=== PATIENT | male | born 1950 | race Caucasian/White ===

== ENCOUNTER → 2017-05-29 | Outpatient (CLI) | payer OTHER ==
[2017-05-29 14:01] LABS: BASOPHILS # (AUTO) 0.06 10*3/UL; BASOPHILS % (AUTO) 0.7 % (0-1); EOSINOPHILS # (AUTO) 0.25 10*3/UL; EOSINOPHILS % (AUTO) 2.9 % (0-8); HEMATOCRIT 41.7 % (42.0-52.0); HEMOGLOBIN 14.1 g/dL (14.0-18.0); LYMPHOCYTES # (AUTO) 2.73 10*3/uL; MEAN CORPUSCULAR HEMOGLOBIN 28.1 PG (27-31); MEAN CORPUSCULAR HGB CONC 33.8 g/dL (33-37); MEAN CORPUSCULAR VOLUME 83.2 FL (80-90); MEAN PLATELET VOLUME 9.2 FL (7.4-12.2); MONOCYTES # (AUTO) 0.58 10*3/UL (0.3-0.8); MONOCYTES % (AUTO) 6.7 % (5-15); NEUTROPHILS # (AUTO) 4.97 10*3/UL; NEUTROPHILS % (AUTO) 57.8 % (50-80); RED BLOOD COUNT 5.01 10^6/uL (4.70-6.10)
[2017-05-29 14:04] LABS: PLATELET MORPHOLOGY COMMENT NORMAL MORPHOLOGY (NORM); RBC MORPHOLOGY COMMENT NORMAL MORPHOLOGY (NORM); WBC MORPHOLOGY COMMENT NORMAL MORPHOLOGY (NORM)
[2017-05-29 14:25] LABS: BLOOD UREA NITROGEN 19 mg/dL (7-22); BUN/CREATININE RATIO 21.11 (6-20); EST GLOMERULAR FILTRATION > 60 (>60 ml/min/1.73m(2))
[2017-05-29 14:26] LABS: C-REACTIVE PROTEIN 2.8 mg/dL (0.0-0.9); CALCIUM 9.5 mg/dL (8.7-10.7); SERUM ALBUMIN 4.3 g/dL (3.5-4.8)
[2017-05-29 14:35] LABS: CREATINE KINASE MB 1.95 NG/ML (0.00-5.00); TROPONIN I < 0.012 ng/mL (< 0.040)
--- NOTE | 2017-05-29 14:50 | EKG ---
[address] [address] Measurements Intervals [place] Rate: 63 P: 5 AK: 164 QRS: 45 QRSD: 88 T: 19 QT: 394 QTc: 401 Interpretive Statements SINUS RHYTHM No previous ECG available for comparison Electronically Signed On 05-31-17 16:25:49 MDT by Jl Rodriguez [email or web address]
--- NOTE | 2017-05-29 15:20 | DI ---
PA /LATERAL CHEST X-RAY, 05/29/2017 1:39 PM : Clinical History: Shortness of breath. Previous Exam: None at this facility. There is no acute soft tissue or bony abnormality. Heart size is normal. Lungs are clear. Mediastinal structures are normal. There are no pulmonary nodules. Reading: Normal chest x-ray.
[2017-06-02 14:22] LABS: THROMBIN TIME 19
[2017-06-02 14:23] LABS: DRVVT SCREEN RATIO 1.2
[2017-06-02 14:25] LABS: PROTEIN C ACTIVITY 189; SOLUBLE FIBRIN MONOMER <8
[2017-06-02 14:26] LABS: PROTEIN S ANTIGEN 108
== END ==
LOC: MOB LAB 13:41
PROVIDERS: ATTEND Physician Assistant
DX: I82.412 Acute embolism and thrombosis of left femoral vein (principal); I26.99 Other pulmonary embolism without acute cor pulmonale; R06.02 Shortness of breath
CPT/HCPCS: 36415; 71020; 71275; 80053; 81240; 82553; 83880; 84484; 85025; 85300; 85303; 85306; 85307; 85366; 85379; 85384; 85390; 85610; 85613; 85670; 85730; 86140; 93005; 93010; 93971; 99213

== ENCOUNTER → 2017-05-29 | Outpatient (CLI) | payer OTHER ==
--- NOTE | 2017-05-29 15:16 | DI ---
VENOUS DOPPLER ULTRASOUND OF THE LEFT LOWER EXTREMITY, 05/29/2017 2:19 PM: Clinical History: Left leg swelling Previous Exam: None. Technique: 2D real-time imaging is supplemented with color Doppler ultrasound. Minimal compression an d augmentation maneuvers were performed. The deep venous system from the groin to the popliteal fossa including the distal deep femoral vein are filled with clot. The greater saphenous vein near the com mon femoral vein also has clot. Reading: There is deep vein thrombosis from the popliteal fossa to the groin.
--- NOTE | 2017-05-29 16:02 | DI ---
CT ANGIOGRAM OF THE CHEST, 05/29/2017 3:01 PM : Clinical History: Deep vein thrombosis. Previous Exam: None at this facility. Scans are performed from the base of the neck to the lower lung bases following IV administration of 65 mL of Isovue 300. Proprietary automated bolus tracking software was not used to verify the timing of the injection. The base of the neck and thoracic inlet are normal. There are no abnormal axillary, supraclavicular, mediastinal, or hilar nodes. The heart is normal. Coronary artery calcifications are present in the p roximal third of the LAD. There is a small "saddle embolus" involving vessels to the lingular segment in the left lower lobe. There is a small embolus in a right lower lobe branch. There is no evidence of an infiltrate indicate pulmonary infarction, and there is no pleural effusion. There is a pleural- based nodule in the right middle lobe abutting the minor fissure consistent with a postinflammatory l esion. There is a second 4 x 4 by 3 mm nodule in the lingular segment that is not calcified. No follo wup is required if this patient is considered to be lower risk for developing lung cancer. A followup scan in 12 months can be considered if this patient is but is being high-risk for developing lung ca ncer or if he has known cancer elsewhere area. There is fatty infiltration of the liver. Both adrenal glands and the spleen and the pancreas are normal. READIN. Pulmonary embolism with clots in branches to the lingular segment in the left lower lobe and in t he right lower lobe. There is no evidence of pulmonary infarction. 2. There is a 4 x 4 by 3 mm noncalcified nodule in the lingular segment. No further workup is requir ed if the patient is considered low risk for developing lung cancer. A followup scan in 12 months can be considered if this patient is but is being high-risk for developing lung cancer or has a known ca ncer with predilection for metastases to the lung.
== END ==
LOC: US 13:58
PROVIDERS: ATTEND Physician Assistant
DX: M79.662 Pain in left lower leg (principal); M79.89 Other specified soft tissue disorders; I26.99 Other pulmonary embolism without acute cor pulmonale; I82.432 Acute embolism and thrombosis of left popliteal vein
CPT/HCPCS: 71275; 93971

== ENCOUNTER → 2017-06-02 | Outpatient (CLI) | payer OTHER | LOC: MMPC 11:11 | PROVIDERS: ATTEND Internal Medicine | DX: I82.432 Acute embolism and thrombosis of left popliteal vein (principal); E11.9 Type 2 diabetes mellitus without complications; K21.9 Gastro-esophageal reflux disease without esophagitis; I26.99 Other pulmonary embolism without acute cor pulmonale ==